=== PATIENT | female | born 1950 | race African-American/Black ===

== ENCOUNTER 2016-10-10 11:10 | Day surgery (SDC) | payer OTHER ==
[~2016-10-10] VITALS: Ht 149.9 cm; Wt 81.2 kg
[~2016-10-10 11:10] MED LIST: ASPIR 8181 M1 PO; CARAFATE1 GM PO; COD LIVER OIL PO; CYMBALTA30 MG PO; DEXILANT60 MG PO; GLUCOPHAGE500 MG PO; LASIX20 MG PO; NASONEX17 GM BOTH NARES; NITROSTAT0.4 MG SL; PRAVACHOL20 MG PO; SINGULAIR10 MG PO; STIOLTO RESPIMAT4 GM IH; TOPAMAX50 MG PO; TOPROL XL100 MG PO; XOPENEX HF200 INHALA IH
[2016-10-10 12:03] LABS: POINT-OF-CARE METER ID UU14174212
[2016-10-10 12:13] VITALS: BP 119/78
[2016-10-10 14:32] LABS: POINT-OF-CARE METER ID UU13113675
[2016-10-10 15:17] VITALS: BP 119/70
[2016-10-10 15:44] VITALS: BP 104/63
== END 2016-10-10 16:07 | disposition home or self-care (01) ==
LOC: SDC
PROVIDERS: Orthopaedic Surgery Hand Surgery
DX: M65.4 Radial styloid tenosynovitis [de Quervain] (principal); M65.841 Other synovitis and tenosynovitis, right hand; G56.01 Carpal tunnel syndrome, right upper limb; I10 Essential (primary) hypertension; E11.9 Type 2 diabetes mellitus without complications; J45.909 Unspecified asthma, uncomplicated; J44.9 Chronic obstructive pulmonary disease, unspecified; K21.9 Gastro-esophageal reflux disease without esophagitis; G47.30 Sleep apnea, unspecified; F41.8 Other specified anxiety disorders; M06.9 Rheumatoid arthritis, unspecified; Z79.82 Long term (current) use of aspirin; Z79.84 Long term (current) use of oral hypoglycemic drugs; Z82.49 Family history of ischemic heart disease and other diseases of the circulatory system; Z83.3 Family history of diabetes mellitus; Z82.61 Family history of arthritis; Z84.1 Family history of disorders of kidney and ureter
CPT/HCPCS: 82948; J1170; J2250; J2405; J3010; S0020